=== PATIENT | female | born 1955 | race Caucasian/White ===

== ENCOUNTER 2024-01-20 22:54 | Emergency (ER) | payer OTHER, SELFPAY ==
[2024-01-20 23:11] VITALS: BP 170/100
--- NOTE | 2024-01-21 03:12 | ED.GENMED ---
History of Present Illness
<JUSTIN Yates - Last Filed: 01/21/24 03:27>
General
Chief Complaint: Abdominal Pain
Source: patient
Exam Limitations: none
Time Seen by Provider: 01/21/24 03:03
Travel History
Have you had any contact with someone who has COVID-19?: No
Do you have any symptoms of coronavirus? Fever > 100 degrees, chills, cough, shortness of breath, sore throat, loss of taste or smell, muscle aches, or headache?: No
History of Present Illness
History of Present Illness:
68 year old female with hx of HTN, HLD, breast CA in remission who presents with bilateral lower abdominal pain that began at 1900 yesterday. States the pain began after she ate dinner. Pain was 9/10 in strength on onset and described like 'someone
punching' her. Pain radiates to the back bilaterally. States she had some broccoli for dinner. She has associated nausea and vomiting. Reports one episode of vomiting. She had one loose stool after onset of pain. Also reports increased belching.
States her pain has improved since onset. No fevers/chills, chest pain, SOB, hematemesis, hematochezia. Pt is currently on Mounjaro 0.25 mg weekly injections. This is her fourth week. Last dose was 1 day ago. She has not had nausea or vomiting after
the injection in the past. No recent travel. No sick contacts. No tobacco or illicit drug use. Admits to drinking a glass of wine occasionally.
Past History
<JUSTIN Yates - Last Filed: 01/21/24 03:27>
Past History
ED Past Medical History: Cancer (Breast cancer), HTN and Hypercholesterolemia
Social History
Tobacco: Non-smoker
Alcohol: Occasional
Drug: None
Review of Systems
<JUSTIN Yates - Last Filed: 01/21/24 03:27>
Review of Systems
Allergies reviewed?: Yes
All Other Systems: ROS reviewed and negative except as documented in HPI and ROS
Constitutional: Reports no symptoms
EENT: Reports no symptoms
Respiratory: Reports no symptoms
Cardiac: Reports no symptoms
ABD/GI: Reports abdominal pain, nausea and vomiting
: Reports no symptoms
Musculoskeletal: Reports no symptoms
Skin: Reports no symptoms
Neurological: Reports no symptoms
Phy Exam
<Abimbola Ramsey [facility] - Last Filed: 01/21/24 03:27>
General Physical Exam
General Presentation: well appearing and mild distress
General age: appears stated age
General Skin: warm and dry
General Habitus: normal
General Mental: alert
General Hydration: appears well hydrated
Pulmonary Exam
Pulmonary Exam: lungs clear, no respiratory distress, no rales, no crackles, no rhonchi, no wheezing and no cough
Gastrointestinal Exam
Gastrointestinal Exam: normal bowel sounds, soft and non distended
Palpation: left lower quadrant: Minimal tenderness and right lower quadrant: Minimal tenderness
Neurological Exam
Neurological Exam: alert and oriented x3
Skin Exam
Skin Exam: normal color and warm/dry
Psychiatric Exam
Psychiatric Exam: normal mood/affect
Course
<Abimbola Ramsey [facility] - Last Filed: 01/21/24 03:27>
Orders/Labs/Results
Orders:
Orders
01/21/24 03:37
CMP [Comprehensive Metabolic Panel] Urgent
Complete Blood Count/With Diff Urgent
01/21/24 05:36
HYDROmorphone [Dilaudid] 0.5 mg IV NOW STA
01/21/24 05:40
Urinalysis Reflex To Culture Urgent
Date Specimen was Collected: 01/21/24
Time Specimen was Collected: 05:38
01/21/24 05:51
CT Abd/pelvis W Iv Cont Urgent
Comment:
Reason For Exam: left lower abd pain
Abnormal Lab Results
01/21/24
03:37
WBC 15.8 H 10^3/uL
(4.8-10.8)
Abs Immat Gran (auto) 0.1 H 10^3/uL
(0-0.05)
Absolute Neuts (auto) 12.3 H 10^3/uL
(1.4-6.5)
Absolute Monos (auto) 0.7 H 10^3/uL
(0.1-0.6)
Neutrophils % 77.8 H %
(42.2-75.2)
Lymphocytes % 16.8 L %
(20.5-51.1)
Glucose 110 H mg/dl
(70-99)
Calcium 10.6 H mg/dl
(8.4-10.2)
ALT 41 H U/L
(0-35)
01/21/24 03:37
01/21/24 03:37
Vital Signs
Initial and Last Documented VS:
Initial Vital Signs
Temp Pulse Resp BP Pulse Ox
98.1 F 95 21 170/100 96
01/20/24 23:11 01/20/24 23:11 01/20/24 23:11 01/20/24 23:11 01/20/24 23:11
Last Documented Vital Signs
Temp Pulse Resp BP Pulse Ox
98.1 F 95 21 137/79 96
01/20/24 23:11 01/20/24 23:11 01/20/24 23:11 01/21/24 04:00 01/21/24 05:00
Katerinlt;Kolton Duval, DO - Last Filed: 01/21/24 07:01>
Orders/Labs/Results
Orders:
Orders
01/21/24 03:37
CMP [Comprehensive Metabolic Panel] Urgent
Complete Blood Count/With Diff Urgent
01/21/24 05:36
HYDROmorphone [Dilaudid] 0.5 mg IV NOW STA
01/21/24 05:40
Urinalysis Reflex To Culture Urgent
Date Specimen was Collected: 01/21/24
Time Specimen was Collected: 05:38
01/21/24 05:51
CT Abd/pelvis W Iv Cont Urgent
Comment:
Reason For Exam: left lower abd pain
Abnormal Lab Results
01/21/24
03:37
WBC 15.8 H 10^3/uL
(4.8-10.8)
Abs Immat Gran (auto) 0.1 H 10^3/uL
(0-0.05)
Absolute Neuts (auto) 12.3 H 10^3/uL
(1.4-6.5)
Absolute Monos (auto) 0.7 H 10^3/uL
(0.1-0.6)
Neutrophils % 77.8 H %
(42.2-75.2)
Lymphocytes % 16.8 L %
(20.5-51.1)
Glucose 110 H mg/dl
(70-99)
Calcium 10.6 H mg/dl
(8.4-10.2)
ALT 41 H U/L
(0-35)
01/21/24 03:37
01/21/24 03:37
Vital Signs
Initial and Last Documented VS:
Initial Vital Signs
Temp Pulse Resp BP Pulse Ox
98.1 F 95 21 170/100 96
01/20/24 23:11 01/20/24 23:11 01/20/24 23:11 01/20/24 23:11 01/20/24 23:11
Last Documented Vital Signs
Temp Pulse Resp BP Pulse Ox
98.1 F 95 21 137/79 96
01/20/24 23:11 01/20/24 23:11 01/20/24 23:11 01/21/24 04:00 01/21/24 05:00
<JUSTIN Yates - Last Filed: 01/21/24 03:27>
MDM/Problems Addressed
Differential Diagnosis Includes:
Diverticulitis, medication side effect of Mounjaro, appendicitis, colitis
MDM/Problems Addressed:
68 year old female with hx of HTN, HLD, breast CA in remission who presents for lower abdominal pain that began at 1900 yesterday.
Chronic conditions affecting care: HTN and Other (HLD)
<JUSTIN Yates - Last Filed: 01/21/24 03:27>
*Critical Care Note
Total Time (30-74mins, 75-104mins- exclusive of procedures): Not Applicable
ED Attending Note
<JUSTIN Yates - Last Filed: 01/21/24 03:27>
-
Portions of this chart may have been created with voice recognition software.� Occasional wrong word or��sound alike� substitutions may have occurred due to the inherent limitations of voice recognition software.
<Kolton Duval DO - Last Filed: 01/21/24 07:01>
ED Attending Note
Patient seen and examined by attending physician: Yes
I performed the substantive portion of visit, reviewed & personally made and approve the management plan that is documented in note by myself or PEARL.: Yes
ED Attending Note:
This a pleasant 68-year-old female who presents with lower left abdominal pain that began around 7 PM last evening. Pain with ported after she ate dinner. She reports that the pain and it severity was 9 out of 10. She described it as a similar
sensation to being struck in the stomach. Patient did have 1 episode of vomiting. Patient does take Mounjaro. She is in her fourth week. Denies fever, chills, chest pain, or shortness of breath. Patient was seen in conjunction with the PA
student. I have reviewed and agree with the history and treatment plan presented. On my independent physical exam, patient is awake, alert, and oriented x3, heart is regular rate and rhythm. Lungs are clear to auscultation bilaterally without
wheezes rales or rhonchi. Abdomen is soft with tenderness to palpation in left lower quadrant. There is no CVA tenderness. Good bowel sounds x 4 quadrants. Moves all 4 extremities. Skin is warm and dry.
Plan is to CT scan.
Discharge Plan
Departure
Patient Disposition: Home (Routine Discharge)
Date of Disposition: 01/21/24
Time of Disposition: 06:57
Patient with high blood pressure during this ER visit?: Yes
Condition: Good
Discharge Problem:
Abdominal pain, Gastritis, Aortic calcification
Instructions: Gastritis (DC), Abdominal Pain
Referrals:
Polo Jama DO [Family Provider] -
Activity Restrictions/Additional Instructions:
Please follow-up with your family doctor to further evaluate the aortic calcifications contained in the CT report
It was a pleasure meeting you and taking part in your care. We hope for your continued healing and wellness.
Please read discharge instructions in their entirety. However, they are for general education and may not describe your exact diagnosis at discharge. Information on your ER visit and medical conditions were discussed with you along with appropriate
follow up information...
If indicated, please take your medications as instructed and indicated on discharge paperwork.
Please schedule a follow up appointment as directed. Call to schedule an appointment
Please return to the emergency department with ANY change in, persisting, or worsening of symptoms. If any of your symptoms do not improve, or persist, or become more severe within 6-12 hours, please return to the emergency department for further
care.
Please return to the emergency department if you develop a headache, neck pain/stiffness, fever greater than 100.4F, chest pain, shortness of breath, persistent nausea, vomiting, slurred speech, difficulty walking, numbness/tingling, weakness, signs
of infection or any other symptoms that are worrisome to you.
If you have any questions or concerns please do not hesitate to call the Hospital at or E-mail me directly at [email or web address]
Interventions
Interventions:
*Risk Screen - Suicide Last Done: 01/21/24 03:32
*General Assessment Last Done: 01/21/24 03:32
*Neglect/Abuse Screening Last Done: 01/21/24 03:32
*ED COVID-19 Vaccine History Last Done: 01/21/24 03:32
LD-Cbmfmi-[id number] Assessment Last Done: 01/21/24 03:29
Discharge Date and Time
Print Language: [place]
[2024-01-21 03:32] VITALS: BMI 26.1
[2024-01-21 03:39] VITALS: BP 107/57
[2024-01-21 03:45] LABS: % Basophils 0.4 % (0-2); % Eosinophils 0.2 % (0-6); % Immature Granulocytes 0.4 % (0-0.5); % Lymphocytes 16.8 % (20.5-51.1); % Monocytes 4.4 % (1.7-9.3); % Neutrophils 77.8 % (42.2-75.2); Absolute Basophils 0.1 10^3/uL (0-0.2); Absolute Immature Granulocytes 0.1 10^3/uL (0-0.05); Absolute Lymphocytes 2.7 10^3/uL (1.2-3.4); Absolute Monocytes 0.7 10^3/uL (0.1-0.6); Absolute Neutrophils 12.3 10^3/uL (1.4-6.5); Hematocrit 40.4 % (37.0-47.0); Hemoglobin 14.4 g/dL (12.0-16.0); Mean Corp Hgb Conc. 35.6 g/dL (33.0-37.0); Mean Corpuscular Hgb 29.6 pg (27.0-31.0); Mean Corpuscular Volume 83.1 fL (81.0-99.0); Mean Platelet Volume 10.2 fL (7.4-10.4); Nucleated Red Blood Cells % 0 %; Platelet Count 340 10^3/uL (130-400); Red Blood Cell Count 4.86 10^6/uL (4.20-5.40); Red Cell Dist. Width 13.2 % (11.5-14.5); White Blood Cell Count 15.8 10^3/uL (4.8-10.8)
[2024-01-21 04:00] VITALS: BP 137/79
[2024-01-21 04:21] LABS: ALT (SGPT) 41 U/L (0-35); AST (SGOT) 34 U/L (14-36); Albumin 4.8 g/dl (3.5-5.0); Alkaline Phosphatase 80 U/L (38-126); Blood Urea Nitrogen 11 mg/dl (7-17); Calcium 10.6 mg/dl (8.4-10.2); Carbon Dioxide 22 mmol/L (22-30); Chloride 103 mmol/L (98-107); Estimated Creatinine Clearance 71 ml/min; Glucose 110 mg/dl (70-99); Potassium 4.2 mmol/L (3.5-5.1); Sodium 140 mmol/L (135-145); Total Bilirubin 0.6 mg/dl (0.2-1.3); Total Protein 7.4 g/dl (6.3-8.2); eGFR > 60.00
[2024-01-21 05:51] LABS: Urine Albumin Negative (Neg - Trace); Urine Bilirubin Negative (Negative); Urine Character Clear (Clear); Urine Color Yellow; Urine Glucose Negative (Negative); Urine Ketone Negative (Negative); Urine Leukocyte Negative (Negative); Urine Nitrite Negative (Negative); Urine Occult Blood Negative (Negative); Urine Specific Gravity 1.015 (<1.030); Urine Urobilinogen Negative (Neg - 1+)
[2024-01-21] MEDS: DILAUDID 0.5 MG IV (05:55)
== END 2024-01-21 07:12 | disposition home or self-care (01) ==
LOC: EMR 22:54
PROVIDERS: Emergency Medicine; EMERGENCY PHYSICIAN Student in an Organized Health Care Education/Training Program; FAMILY PHYSICIAN Family Medicine
DX: R10.32 Left lower quadrant pain (principal); R10.31 Right lower quadrant pain; K29.70 Gastritis, unspecified, without bleeding; I70.0 Atherosclerosis of aorta; I10 Essential (primary) hypertension; E78.00 Pure hypercholesterolemia, unspecified; Z85.3 Personal history of malignant neoplasm of breast; Z90.710 Acquired absence of both cervix and uterus
CPT/HCPCS: 99284; 96374; 74177; 80053; 81003; 85025; Q9967

== ENCOUNTER → 2024-02-04 06:31 | Day surgery (SDC) | payer OTHER, SELFPAY | LOC: GI 06:31 | PROVIDERS: ATTENDING PHYSICIAN Internal Medicine Gastroenterology; FAMILY PHYSICIAN Family Medicine | DX: Z12.11 Encounter for screening for malignant neoplasm of colon (principal); K57.30 Diverticulosis of large intestine without perforation or abscess without bleeding; K55.20 Angiodysplasia of colon without hemorrhage; R13.14 Dysphagia, pharyngoesophageal phase; K22.2 Esophageal obstruction; K44.9 Diaphragmatic hernia without obstruction or gangrene; K31.89 Other diseases of stomach and duodenum; R12 Heartburn; K62.1 Rectal polyp; K62.89 Other specified diseases of anus and rectum; Z86.010 Personal history of colon polyps | CPT/HCPCS: 43249; 45380; 88305; 88313; 88342 ==

== ENCOUNTER → 2024-05-06 07:58 | Outpatient (REF) | payer OTHER, SELFPAY | LOC: HWRCS 07:58 | PROVIDERS: ATTENDING PHYSICIAN Internal Medicine; FAMILY PHYSICIAN Family Medicine | DX: I70.0 Atherosclerosis of aorta (principal); R06.09 Other forms of dyspnea | CPT/HCPCS: 93306 ==

== ENCOUNTER → 2024-05-07 08:00 | Outpatient (REF) | payer OTHER, SELFPAY | LOC: DHCBC/DCA 08:00 | PROVIDERS: ATTENDING PHYSICIAN Internal Medicine; FAMILY PHYSICIAN Family Medicine | DX: I70.0 Atherosclerosis of aorta (principal); R06.09 Other forms of dyspnea | CPT/HCPCS: 78452; 93017; A9500; J2785 ==

== ENCOUNTER → 2024-06-07 09:09 | Outpatient (REF) | payer OTHER, SELFPAY | LOC: RAD 09:09 | PROVIDERS: ATTENDING PHYSICIAN Surgery Vascular Surgery; FAMILY PHYSICIAN Family Medicine | DX: I70.0 Atherosclerosis of aorta (principal) | CPT/HCPCS: 93922 ==